=== PATIENT | female | born 1995 | race Caucasian/White ===

== ENCOUNTER 2022-02-10 18:14 | Emergency (ER) | payer BC ==
[~2022-02-10] VITALS: Ht 162.6 cm; Wt 101.8 kg
--- NOTE | 2022-02-10 18:37 | PHYS DOC ---
Past History Past Surgical History: Other Additional Past Surgical Histo: CYST REMOVAL FROM FOOT Alcohol Use: Rarely Adult General Chief Complaint Chief Complaint: MECHANICAL FALL HPI HPI Patient is an otherwise healthy 26-year-old female who presents with a chief complaint of pain in her backside after slipping and falling backwards on her stairs and landing on her butt. States she is having some pain in that area, 4 out of 10, dull and achy in nature, denies any other injuries, head injury, loss of consciousness, back pain, numbness/weakness/tingling. Denies trouble sitting, standing or walking. States this happened earlier today. Denies any numbness/weakness/tingling. States she has had a bowel movement and has urinated since then. Did not take any medications. Review of Systems Review of Systems Review of systems otherwise unremarkable except noted in HPI Allergies Allergies Allergies Coded Allergies Type Severity Reaction Last Updated Verified No Known Drug Allergies 02/10/22 No Physical Exam Physical Exam Constitutional: Well developed, well nourished, no acute distress, non-toxic appearance. [] HENT: Normocephalic, atraumatic, Neck: Normal range of motion, no tenderness, Abdomen: soft, no tenderness, Skin: Warm, dry, no erythema, no rash. [] Back: No tenderness, deformities, bruising, changes in range of motion Extremities: No tenderness, no cyanosis, no clubbing, ROM intact, no edema. [] Neurologic: Alert and oriented X 3, normal motor function, normal sensory function, able to sit, stand and walk without issue, no focal deficits noted. [] Psychologic: Affect normal, judgement normal, mood normal. [] Current Patient Data Vital Signs Vital Signs Date Time Temp Pulse Resp B/P (MAP) Pulse Ox O2 Delivery O2 Flow Rate FiO2 02/10/22 18:26 98.1 72 18 139/72 (94) 100 Room Air EKG EKG [] Radiology/Procedures Radiology/Procedures [] Heart Score C/O Chest Pain: No Risk Factors: Risk Factors: DM, Current or recent (<one month) smoker, HTN, HLP, family history of CAD, obesity. Risk Scores: Risk Factors: DM, Current or recent (<one month) smoker, HTN, HLP, family history of CAD, obesity. Course & Med Decision Making Course & Med Decision Making Patient is a 26-year-old female who presents with pain in her backside after falling backwards on the stairs Vital signs not concerning. Physical exam noted above. Given pain medicine and ice pack Imaging notable for distal sacral fracture, with no apparent displacement or angulation and slight subluxation. Discussed symptom management at home. Advised to follow-up soon as possible with primary care physician. Given contact information for orthopedic surgeon to follow-up with. Gave return precautions to the ED. Family grateful, verbalized understanding and agreed with plan of discharge. [] Dragon Disclaimer Dragon Disclaimer This electronic medical record was generated, in whole or in part, using a voice recognition dictation system. Departure Departure: Impression: Primary Impression: Sacral fracture, closed Disposition: HOME / SELF CARE / HOMELESS Condition: STABLE Referrals: RICK MYRICK (PCP) Patient Instructions: Tailbone Injury Additional Instructions: Thank you for coming into the emergency department tonight and allowing us to take care of you. Please read the attached information carefully to go over things we discussed. Please begin a Tylenol, ibuprofen, ice and Benadryl regimen as we discussed and as tolerated. Please follow-up in the morning with your primary care physician update on your ED visit and set up a follow-up. If your primary care physician feels it is necessary or if you would like to you can follow-up with an orthopedic surgeon at [place] by calling [phone] for a follow-up appointment. Please come back with new or concerning symptoms as we discussed. PEÑA MARTE MD Feb 10, 2022 18:37
[2022-02-10] MEDS ORDERED: IBUPROFEN 600 MG TABLET. PO ONE (18:45)
[2022-02-10] MEDS ORDERED: ACETAMINOPHEN 500 MG TABLET PO ONE (18:45)
[2022-02-10 19:06] VITALS: BP 135/87
--- NOTE | 2022-02-10 20:22 | RAD ---
EXAMINATION: XR SACRUM AND COCCYX 2+VIEWS CLINICAL HISTORY: Fall on backside, sacrococcygeal pain. TECHNIQUE: XR SACRUM AND COCCYX 2+VIEWS COMPARISON: None FINDINGS/ IMPRESSION: Questionable cortical irregularity at the S4 segment on lateral view only, cannot exclude a subtle fr acture. There is otherwise no evidence of acute fracture. SI joints maintained. Electronically signed by: Cj Carrera DO (02/10/2022 8:19 PM) [id number]
== END 2022-02-10 19:26 | disposition home or self-care (01) ==
LOC: ER 18:14
DX: S32.10XA Unspecified fracture of sacrum, initial encounter for closed fracture (principal); W01.0XXA Fall on same level from slipping, tripping and stumbling without subsequent striking against object, initial encounter; Y93.89 Activity, other specified; Y92.89 Other specified places as the place of occurrence of the external cause; Y99.8 Other external cause status
CPT/HCPCS: 72220; 81025; 99283